=== PATIENT | male | born 1935 | race Caucasian/White ===

== ENCOUNTER 2018-02-16 09:15 | Observation (INO) | payer OTHER ==
[~2018-02-16] VITALS: Ht 170.2 cm; Wt 82.3 kg
[~2018-02-16 09:15] MED LIST: ASPIRIN81 M1 PO; FINASTERIDE5 MG PO; FISH OIL 1,0001 EAC7 PO; JAYLN; LO-DOSE ASPIRIN81 M1 PO; LOSARTAN POTAS100 MG PO; LOSARTAN POTASS25 MG PO; METOPROLOL SUCC25 MG PO; METOPROLOL SUCCINATE; PANTOPRAZOLE SO40 MG PO; PRILOSEC40 MG PO; PROTONIX40 MG PO; TAMSULOSIN HCL0.4 MG PO
[2018-02-16 11:12] LABS: BASOPHIL (%) 0.7 % (0-1); EOSINOPHIL (%) 9.9 % (0-5); EOSINOPHIL COUNT 0.4 K/uL (0-0.3); HEMATOCRIT 33.5 % (38.0-50.0); HEMOGLOBIN 11.5 G/DL (12.5-16.6); IMMATURE GRANULOCYTE (%) 0.5 % (0.0-0.7); LYMPHOCYTE (%) 37.8 % (15-42); LYMPHOCYTE COUNT 1.7 K/uL (1.0-2.8); MCH 31.8 PG (29.0-34.0); MCHC 34.3 G/DL (30.0-36.0); MCV 92.5 FL (86-99); MONOCYTE (%) 9.2 % (3-12); MONOCYTE COUNT 0.4 K/uL (0-0.8); NEUTROPHIL (%) 41.9 % (45-76); NEUTROPHIL COUNT 1.8 K/uL (1.8-6.4); PLATELET COUNT 168 K/uL (156-360); RBC DIS.WIDTH-CV 12.7 % (11.8-14.6); RBC DIS.WIDTH-SD 43.3 % (39-53); RED BLOOD COUNT 3.62 M/uL (4.00-5.50); WHITE BLOOD COUNT 4.4 K/uL (4.1-10.2)
[2018-02-16 11:22] LABS: PTT 25.1 SEC (25-37)
[2018-02-16 11:23] LABS: ALBUMIN 3.7 g/dL (3.2-4.8); CHLORIDE 105 mEq/L (99-109); POTASSIUM 4.8 mEq/L (3.7-5.4); SODIUM 136 mEq/L (136-147)
[2018-02-16 11:25] LABS: GLUCOSE 109 mg/dL (70-99); TOTAL PROTEIN 6.5 g/dL (6.4-8.3)
[2018-02-16 11:27] LABS: TOTAL BILIRUBIN 0.4 mg/dL (0.0-1.0)
[2018-02-16 11:29] LABS: ALKALINE PHOSPHATASE 76 IU/L (3-129); GFR ESTIMATE (CALCULATED) > 59 mL/min/ (58.99-99999)
[2018-02-16 11:30] LABS: UREA NITROGEN (BUN) 15 mg/dL (9-23)
[2018-02-16 11:31] LABS: AST (GOT) 18 IU/L (2-34); DIRECT BILIRUBIN 0.2 mg/dL (0.0-0.3)
[2018-02-16 11:32] LABS: ALT (GPT) 12 IU/L (3-49); LIPASE 44 U/L (1.0-51.0)
[2018-02-16 11:34] LABS: TROP-I INTERPRETATION NEGATIVE; TROPONIN-I < 0.01 ng/mL (0.0-0.30)
[2018-02-16] MEDS ORDERED: METOPROLOL SUCC50 MG PO (12:39)
[2018-02-16 15:50] VITALS: BP 176/81
[2018-02-16 17:36] LABS: TROP-I INTERPRETATION NEGATIVE; TROPONIN-I < 0.01 ng/mL (0.0-0.30)
[2018-02-16 19:04] VITALS: BP 134/70
[2018-02-16 23:24] LABS: TROP-I INTERPRETATION NEGATIVE; TROPONIN-I < 0.01 ng/mL (0.0-0.30)
[2018-02-16 23:44] VITALS: BP 153/65
[2018-02-17 04:04] VITALS: BP 150/67
[2018-02-17 08:03] VITALS: BP 151/73
[2018-02-17 08:29] LABS: HEMATOCRIT 34.7 % (38.0-50.0); MCH 31.8 PG (29.0-34.0); MCHC 34.6 G/DL (30.0-36.0); PLATELET COUNT 176 K/uL (156-360); RBC DIS.WIDTH-CV 12.6 % (11.8-14.6); RBC DIS.WIDTH-SD 42.2 % (39-53); RED BLOOD COUNT 3.77 M/uL (4.00-5.50); WHITE BLOOD COUNT 3.9 K/uL (4.1-10.2)
[2018-02-17] MEDS ORDERED: MAG-AL PLUS SUS30 ML PO (10:38)
[2018-02-17] MEDS ORDERED: PEPCID20 MG PO (10:39)
[2018-02-17 12:20] VITALS: BP 160/70
== END 2018-02-17 14:19 | disposition home or self-care (01) ==
LOC: EME 09:15 → EDOF 14:00 → ENRESERV 14:20 → 4SOUTH 15:33
PROVIDERS: Emergency Medicine; Internal Medicine
DX: R07.9 Chest pain, unspecified (principal); K21.9 Gastro-esophageal reflux disease without esophagitis; R94.31 Abnormal electrocardiogram [ECG] [EKG]; I10 Essential (primary) hypertension; I25.10 Atherosclerotic heart disease of native coronary artery without angina pectoris; Z79.82 Long term (current) use of aspirin; N40.0 Benign prostatic hyperplasia without lower urinary tract symptoms; Z85.828 Personal history of other malignant neoplasm of skin; Z87.891 Personal history of nicotine dependence
CPT/HCPCS: 71046; 80048; 80076; 83690; 83880; 84484; 85025; 85027; 85610; 85730; 93005; 99281; 99285; G0378; J1644